=== PATIENT | male | born 1960 | race Caucasian/White ===

== ENCOUNTER → 2016-11-23 | Outpatient (CLI) | payer OTHER ==
[~2016-11-23] MED LIST: methylPREDNISolone 80 MG/ML (DEPO MEDROL) VIAL IM ONE
--- NOTE | 2016-11-24 14:21 | PAIN MANAGEMENT ---
Date of note: 11/23/2016 PROCEDURE: Epidural steroid injection L5-S1 under fluoroscopy. Fluoroscopy exposure 28 seconds This is a 55-year-old patient who presents with long standing history of low back pain. He had back surgery approximately 20 years ago. He has spinal stenosis with radicular symptoms in the right leg dermatome level L5. Informed consent was achieved for an epidural steroid injection under fluoroscopy. Orders for procedure verified. Patient denies any bleeding tendencies. After informed consent obtained, the patient was positioned for the lumbar epidural steroid injection. The area was prepped and draped using aseptic technique. The skin and overlying tissues were localized using 3 mL of 1% Preservative-Free lidocaine using a 25-gauge 1.5-inch needle. A 20-gauge Tuohy needle was advanced, using "loss of resistance" technique, to the epidural space. No blood, cerebral spinal fluid, pain, or paresthesia noted on entry of the epidural space. A 1 mL solution of Depo-Medrol 80 mg was injected slowly without mass volume effect. The patient was placed in supine position 15 minutes prior to being released with proper leg strength and vitals. Pre- and post procedure vital signs stable with no sensory or motor deficit noted. Instruction on followup contact and care provided to the patient.
== END ==
LOC: PMC 13:56
PROVIDERS: ATTEND Physician Assistant Medical
DX: M48.06 Spinal stenosis, lumbar region (principal)
CPT/HCPCS: 62323; J1040

== ENCOUNTER → 2016-12-08 | Outpatient (CLI) | payer OTHER ==
--- NOTE | 2016-12-08 14:52 | PAIN MANAGEMENT ---
Date of note: 12/08/2016 PROCEDURE: L5-S1 epidural steroid injection under fluoroscopy. TOTAL FLUOROSCOPIC TIME: 20 seconds. This is a 56-year-old patient of [facility]. The patient presents with a previous history of back surgery at L5-S1. He has spinal stenosis throughout his entire lumbar spine. He is having pain at dermatome level of L5-S1. He previously had an epidural steroid injection by al at this same level. He is no longer having radicular symptoms clear to the bottom of his feet but is still having some to mid thigh on the right side. Informed consent was achieved for an epidural steroid injection with fluoro. Orders for procedure verified. Patient denies any bleeding tendencies. After informed consent obtained, the patient was positioned for the lumbar epidural steroid injection. The area was prepped and draped using aseptic technique. The skin and overlying tissues were localized using 3 mL of 1% Preservative-Free lidocaine using a 25-gauge 1.5-inch needle. A 20-gauge Tuohy needle was advanced, using "loss of resistance" technique, to the epidural space. No blood, cerebral spinal fluid, pain, or paresthesia noted on entry of the epidural space. A 1 mL solution of Depo-Medrol 80 mg was injected slowly without mass volume effect. The patient was placed in supine position 15 minutes prior to being released with proper leg strength and vitals. Pre- and post procedure vital signs stable with no sensory or motor deficit noted. Instruction on followup contact and care provided to the patient.
== END ==
LOC: PMC 13:02
PROVIDERS: ATTEND Physician Assistant Medical
DX: M48.06 Spinal stenosis, lumbar region (principal)
CPT/HCPCS: 62323; J1040